=== PATIENT | female | born 1995 | race Caucasian/White ===

== ENCOUNTER 2021-08-28 22:51 | Emergency (ER) | payer BC ==
[~2021-08-28] VITALS: Ht 165.1 cm; Wt 79.4 kg
== END 2021-08-29 02:31 ==
LOC: ER 22:51
DX: S09.90XA Unspecified injury of head, initial encounter (principal); W18.30XA Fall on same level, unspecified, initial encounter; Y93.9 Activity, unspecified; Y92.413 State road as the place of occurrence of the external cause